=== PATIENT | male | born 2000 | race Caucasian/White ===

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

== ENCOUNTER 2021-03-17 15:00 | Observation (INO) | payer OTHER, SELFPAY ==
[~2021-03-17] VITALS: Ht 180.3 cm; Wt 47.2 kg
[2021-03-17 15:07] VITALS: BP 117/75
--- NOTE | 2021-03-17 15:10 | NUR ---
Patient ambulated to restroom with steady/even gait for UA attempt
--- NOTE | 2021-03-17 15:14 | NUR ---
Patient to bed 04 with slow, steady gait. Accompanied by family and mother.
--- NOTE | 2021-03-17 15:15 | NUR ---
20 y/o M BIB mother c/o acute onset low abdominal pain x 2 hours now. Patient states 9/10, non-radiating pain. Patient reports at home at rest playing video games. Abd soft/round/tender to touch. Denies fever, chills, nausea, vomiting, diarrhea, constipation, chest pain, low pain, injury/trauma, dysuria. Pt placed into a gown and UA sample collected. electronic semiconductor processor in place VSS; respirations even/unlabored. Bed locked in lowest position, side rails x 1. Mother at bedside. PMH: hearing impaired, speech and comphrension impaired, autism Meds: Vinolin A: codeine
--- NOTE | 2021-03-17 15:15 | NUR ---
Dr. Cheung is evaluating patient at bedside
[2021-03-17] MEDS ORDERED: NACL 0.9% 1,000 ML IV SCH (15:30)
[2021-03-17] MEDS ORDERED: KETOROLAC 30 MG/ML VIAL IVP ONE (15:30)
--- NOTE | 2021-03-17 15:47 | NUR ---
CT consent form obtained.
--- NOTE | 2021-03-17 15:52 | NUR ---
Unable to contact CT by telephone at this time
--- NOTE | 2021-03-17 15:53 | NUR ---
Dr. Cheung advised hvac engineering technician at ER bedside patient is ready for CT without lab results.
[2021-03-17 15:58] LABS: BASOPHILS # (AUTO) 0.1 K/uL (0.00-0.22); BASOPHILS % (AUTO) 0.8 % (0.0-2.0); EOSINOPHILS # (AUTO) 0.1 K/uL (0-0.4); EOSINOPHILS % (AUTO) 1.6 % (0.0-4.0); HEMATOCRIT 46.8 % (36-52); HEMOGLOBIN 15.6 g/dL (12.0-18.0); LYMPHOCYTES # (AUTO) 1.6 K/uL (2.0-11.5); MEAN CORPUSCULAR HEMOGLOBIN 29 pg (27-31); MEAN CORPUSCULAR HGB CONC 33 g/dL (33-37); MEAN CORPUSCULAR VOLUME 85.7 fL (80-94); MONOCYTES # (AUTO) 0.3 K/uL (0.8-1.0); MONOCYTES % (AUTO) 4.1 % (1.7-9.3); NEUTROPHILS # (AUTO) 5.9 K/uL (1.8-7.7); NEUTROPHILS % (AUTO) 73.5 % (42.2-75.2); PLATELET COUNT (AUTO) 239 K/uL (140-450); RED BLOOD CELL COUNT(AUTO) 5.46 MIL/uL (4.20-6.10); RED CELL DISTRIBUTION WIDTH 14.3 % (11.6-13.7); WHITE BLOOD COUNT (AUTO) 8.1 K/uL (4.8-10.8)
--- NOTE | 2021-03-17 15:58 | NUR ---
Blood sample walked to lab and handed to CPT. Ivelisse
[2021-03-17 16:41] LABS: ALBUMIN 4.3 g/dL (3.4-5.0); ANION GAP 14.2 (8-16); CARBON DIOXIDE 27.7 mmol/L (21-32); POTASSIUM 3.9 mmol/L (3.5-5.1); TOTAL BILIRUBIN 0.6 mg/dL (0.0-1.0)
[2021-03-17 16:46] LABS: APPEARANCE,URINE SL CLOUDY (CLEAR); BILIRUBIN,URINE NEGATIVE (NEGATIVE); BLOOD, URINE NEGATIVE (NEGATIVE); COLOR,URINE YELLOW (YELLOW); LEUKOCYTE ESTERASE ,URINE NEGATIVE (NEGATIVE); NITRITE, URINE NEGATIVE (NEGATIVE); PH,URINE 8.5 (5.0-9.0); UGLUCOSE NEGATIVE (NEGATIVE)
[2021-03-17 17:13] LABS: CREATININE 0.9 mg/dL (0.6-1.3)
--- NOTE | 2021-03-17 17:27 | NUR ---
COVID SWAB OBTAINED AND WALKED TO LAB
[2021-03-17] MEDS ORDERED: PIPERACILLIN/TAZOBACTAM 3.375 GM in DEXTROSE 5% 50 ML IV ONE (17:30)
[2021-03-17] MEDS ORDERED: PIPERACILLIN/TAZOBACTAM 3.375 GM VIAL IV ONE (17:48)
--- NOTE | 2021-03-17 17:55 | NUR ---
Blood cultures handed to CPT Ivelisse at ER bedside
[2021-03-17] MEDS ORDERED: HYDROcodone/APAP 5/325 MG 1 TAB TAB PO PRN ×2 (18:35→20:25)
[2021-03-17] MEDS ORDERED: ONDANSETRON 4 MG/2 ML VIAL IVP PRN ×2 (18:35→20:30)
[2021-03-17] MEDS ORDERED: ACETAMINOPHEN 325 MG TAB PO PRN ×2 (18:35→20:25)
[2021-03-17] MEDS: NACL 0.9% 1,000 ML IV SCH (18:39)
[2021-03-17] MEDS ORDERED: KETOROLAC 15 MG/ML VIAL IVP PRN (18:40)
--- NOTE | 2021-03-17 18:40 | NUR ---
Dr. Alfred is evaluating patient at bedside
--- NOTE | 2021-03-17 18:57 | NUR ---
Patient will be admitted to care of Dr. Spencer. Admited to Med/Surg. Will go to room OR/111B. Belongings list completed. Report to DARREL Talely.
[2021-03-17] MEDS ORDERED: BUPIVACAINE-MPF/EPI 0.25% 30 ML VIAL INJ ONE (19:15)
[2021-03-17] MEDS ORDERED: DEXAMETHASONE 4 MG/ML VIAL ONE (19:27)
[2021-03-17] MEDS ORDERED: KETOROLAC 30 MG/ML VIAL ONE ×2 (19:27→19:38)
[2021-03-17] MEDS ORDERED: fentaNYL citrate 0.05 MG/ML VIAL ONE (19:36)
[2021-03-17] MEDS ORDERED: ONDANSETRON 4 MG/2 ML VIAL ONE (19:38)
[2021-03-17] MEDS ORDERED: ROCURONIUM 50 MG/5 ML VIAL IV ONE (19:38)
[2021-03-17] MEDS ORDERED: PROPOFOL 200 MG/20 ML VIAL IV ONE (19:46)
[2021-03-17] MEDS ORDERED: SUCCINYLCHOLINE CHLORIDE 200 MG/10 ML VIAL IVP ONE (19:46)
[2021-03-17] MEDS ORDERED: HYDROmorphone PFS 2 MG/ML SYR ONE (19:58)
[2021-03-17] MEDS ORDERED: MORPHINE SULFATE 4 MG/ML SYR IV PRN (20:25)
[2021-03-17] MEDS ORDERED: MORPHINE SULFATE 2 MG/ML SYR IVP PRN (20:25)
[2021-03-17] MEDS ORDERED: ONDANSETRON 4 MG/2 ML VIAL IV PRN (20:25)
[2021-03-17] MEDS ORDERED: HYDROmorphone 1 MG/ML AMP IVP PRN (20:30)
--- NOTE | 2021-03-17 21:05 | NUR ---
PATIENT WAS RECEIVED IN BED ALERT BUT SLEEPY, NO RESPIRATORY DISTRESS, MOTHER WAS AT THE BEDSIDE AVAILABLE TO HELP INTERVIEW FOR ADMISSION.
[2021-03-18] VITALS: BP 119/71
--- NOTE | 2021-03-18 | NUR ---
VITAL SIGNS WITHIN NORMAL LIMIT FOR THE FIRST 4 15 MINUTES, HR INCREASED IN THE LAST 2 (30 MINUTES) VITAL SIGNS BUT BP WAS WITHIN NORMAL LIMIT, PATIENT WAS ALERT AND AROUSABLE BY NAME
--- NOTE | 2021-03-18 02:00 | NUR ---
PATIENT WAS CALMLY ASLEEP AT THIS TIME, REGULAR AND EQUAL RISE AND FALL OF CHEST.
[2021-03-18] MEDS: NACL 0.9% 1,000 ML IV SCH (03:30)
--- NOTE | 2021-03-18 03:30 | NUR ---
PATIENT C/O PAIN IN ABD 12/25, MY CHARGE NURSE GAV HIM TORADOL PER M.D. ORDERED. TOLERATED WELL.
[2021-03-18 04:00] VITALS: BP 115/48
--- NOTE | 2021-03-18 04:00 | NUR ---
VITAL SIGNS ARE WITHIN THE NORMAL LIMIT.
[2021-03-18 06:34] LABS: HEMATOCRIT 39.5 % (36-52); LYMPHOCYTES # (AUTO) 0.6 K/uL (2.0-11.5); LYMPHOCYTES % (AUTO) 3.8 % (20.5-51.1); MEAN CORPUSCULAR HEMOGLOBIN 29 pg (27-31); MEAN CORPUSCULAR HGB CONC 33 g/dL (33-37); MEAN CORPUSCULAR VOLUME 86.6 fL (80-94); MONOCYTES # (AUTO) 0.5 K/uL (0.8-1.0); MONOCYTES % (AUTO) 3.2 % (1.7-9.3); NEUTROPHILS # (AUTO) 15.1 K/uL (1.8-7.7); PLATELET COUNT (AUTO) 235 K/uL (140-450); RED BLOOD CELL COUNT(AUTO) 4.55 MIL/uL (4.20-6.10); RED CELL DISTRIBUTION WIDTH 14.2 % (11.6-13.7); WHITE BLOOD COUNT (AUTO) 16.2 K/uL (4.8-10.8)
[2021-03-18 07:02] LABS: ANION GAP 11.8 (8-16); CARBON DIOXIDE 24.3 mmol/L (21-32); CREATININE 0.7 mg/dL (0.6-1.3); POTASSIUM 4.1 mmol/L (3.5-5.1)
--- NOTE | 2021-03-18 07:26 | NUR ---
ALL REPORTS WERE GIVEN, TRANSFER OF CARE ENDORSED.
--- NOTE | 2021-03-18 07:27 | NUR ---
RECEIVED PATIENT FROM HAIRMASTERS MANAGER NURSE FOR CONTINUITY OF CARE. PT IS AOX4, ABLE TO MAKE NEEDS KNOWN. RESPIRATIONS EVEN AND UNLABORED. ON ROOM AIR. NO DISTRESS NOTED. NOTED 3 SURGICAL INCISIONS OPEN TO AIR. NO DRAINAGE NOTED. PT DENIES PAIN AT THE MOMENT. IV LINE INTACT AND PATENT INFUSING FLUIDS WELL. PLAN OF CARE DISCUSSED. SAFETY PRECAUTIONS IN PLACE. CALL LIGHT WITHIN REACH. WILL CONTINUE TO MONITOR.
[2021-03-18 08:00] VITALS: BP 104/53
[2021-03-18] MEDS ORDERED: KETOROLAC 30 MG/ML VIAL IVP PRN (08:35)
[2021-03-18] MEDS ORDERED: IBUP-1842 PO (09:00)
--- NOTE | 2021-03-18 09:07 | NUR ---
PT COMPLAINED OF 6/10 PAIN. WAS GIVEN PRN MEDS PRESCRIBED PER MD FOR MODERATE PAIN. PT TOLERATED WELL AND STABLE.
[2021-03-18 10:22] VITALS: BP 104/53
--- NOTE | 2021-03-18 11:01 | NUR ---
PATIENT HAS BEEN SCREENED AND CATEGORIZED HIGH NUTRITION RISK. PATIENT WILL BE SEEN WITHIN 1-2 DAYS OF ADMISSION. 03/19/21 REVIEWED BY GALO BE[address]
--- NOTE | 2021-03-18 12:00 | NUR ---
ENDORSED DISCHARGE INSTRUCTIONS TO PATIENT AND FAMILY. BOTH PARTIES VERBALIZED UNDERSTANDING AND PT SIGNED DISCHARGE FORMS.
--- NOTE | 2021-03-18 12:15 | NUR ---
PATIENT DISCHARGED OFF THE UNIT. IV CATH AND ID BAND REMOVED. ESCORTED PATIENT TO THE FRONT LOBBY WITH FAMILY. PT WAS STABLE.
== END 2021-03-18 12:15 | disposition home or self-care (01) ==
LOC: MED 15:00 → MTU 18:36 → INTOOBSV 18:36
PROVIDERS: ADMIT Internal Medicine; ATTEND Internal Medicine
DX: K35.80 Unspecified acute appendicitis (principal); Z20.822 Contact with and (suspected) exposure to COVID-19; F84.0 Autistic disorder; F81.9 Developmental disorder of scholastic skills, unspecified
CPT/HCPCS: 36415; 44970; 74177; 80048; 80053; 81003; 82374; 83690; 85025; 87040; 87081; 87426; 96365; 96375; 96376; 99285; G0378; J0330; J1100; J1170; J1644; J1885; J2405; J2543; J2704; J3010; J3490; J7030; J7120; Q9967; 88304

== ENCOUNTER 2022-04-06 05:55 | Emergency (ER) | payer OTHER ==
[~2022-04-06] VITALS: Ht 175.3 cm; Wt 47.6 kg
[~2022-04-06 05:55] MED LIST: IBUP-1842 PO
[2022-04-06 06:02] VITALS: BP 126/75
--- NOTE | 2022-04-06 06:09 | NUR ---
BIB MOM C/O LOWER ABDOMINAL PAIN X 2 DAYS, +DIARRHEA. DENIES N/V. +SICK CONTACTS IN HOUSE WITH SIMILAR SYMPTOMS. PER MOM SHE IS MEDICATING WITH MOTRIN LAST DOSE AT 2200. PMH SPEECH AND HEARING IMPAIRMENT
--- NOTE | 2022-04-06 06:13 | NUR ---
DR. BANDA IN TRIAGE FOR MSE
[2022-04-06] MEDS ORDERED: NACL 0.9% 1,000 ML IV ONE (06:35)
--- NOTE | 2022-04-06 06:37 | NUR ---
REPORT GIVEN TO UCHE ROJO
--- NOTE | 2022-04-06 06:44 | NUR ---
PT AMB W/ ASSIST TO BED 02
[2022-04-06 07:09] LABS: APPEARANCE,URINE CLEAR (CLEAR); BILIRUBIN,URINE NEGATIVE (NEGATIVE); BLOOD, URINE NEGATIVE (NEGATIVE); COLOR,URINE YELLOW (YELLOW); LEUKOCYTE ESTERASE ,URINE NEGATIVE (NEGATIVE); NITRITE, URINE NEGATIVE (NEGATIVE); UGLUCOSE NEGATIVE (NEGATIVE)
--- NOTE | 2022-04-06 07:17 | NUR ---
REPORT TO TRUE ROJO WITH FULL RETURNED VERBAL UNDERSTANDING.
--- NOTE | 2022-04-06 07:36 | NUR ---
BLOOD DRAWN BY PUBLIC ADMINISTRATION TEACHER. PT AMBULATED TO RESTROOM
[2022-04-06] MEDS ORDERED: IBUPROFEN 600 MG TAB PO ONE (07:40)
[2022-04-06 07:53] LABS: ANION GAP 15.2 (8-16); CARBON DIOXIDE 22.4 mmol/L (21-32); POTASSIUM 3.6 mmol/L (3.5-5.1)
[2022-04-06 08:02] VITALS: BP 106/59
[2022-04-06] MEDS ORDERED: ONDA-188 PO (08:28)
[2022-04-06] MEDS ORDERED: LOPE1TAB14 PO (08:28)
--- NOTE | 2022-04-06 08:34 | NUR ---
Patient discharged with v/s stable. Written and verbal after care instructions given and explained. Patient alert, oriented and verbalized understanding of instructions. Ambulatory with steady gait. All questions addressed prior to discharge. ID band removed. Patient advised to follow up with PMD. Patient educated on indication of medication including possible reaction and side effects. Opportunity to ask questions provided and answered.
== END 2022-04-06 08:34 | disposition home or self-care (01) ==
LOC: MED 05:55
DX: R19.7 Diarrhea, unspecified (principal); R10.84 Generalized abdominal pain; A05.9 Bacterial foodborne intoxication, unspecified; Z88.5 Allergy status to narcotic agent; Z79.899 Other long term (current) drug therapy
CPT/HCPCS: 36415; 74018; 80048; 81003; 99284; J7030; Q0092

== ENCOUNTER 2022-06-09 09:39 | Emergency (ER) | payer OTHER ==
[~2022-06-09] VITALS: Ht 175.3 cm; Wt 47.6 kg
[~2022-06-09 09:39] MED LIST changes: +LOPE1TAB14 PO; +ONDA-188 PO
[2022-06-09 09:40] VITALS: BP 131/78
--- NOTE | 2022-06-09 09:40 | NUR ---
21M BIBA FROM HOME ACCOMPANIED BY MOM WITH C/O GENERALIZED WEAKNESS AND NUMBNESS TO THE TONGUE SINCE THIS MORNING. MOM REPORTS PT HAS COUGH AND CONGESTION X3DAYS, FATHER SICK AT HOME WITH SAME S/S. MOM REPORTS PT TOOK DAD'S PROMETHAZINE, FIRST TIME USING MED, AND FELT WEAK, JITTERY AND TONGUE NUMBNESS SHORTLY AFTER. MOM DENIES FEVERS, CHILLS, N/V/D OR PAIN UPON ASSESSMENT. PT PLACED ON BEDSIDE MONITOR, BED AT LOWEST POSITION, SIDE RAILS X1.
--- NOTE | 2022-06-09 09:40 | NUR ---
KINGA PONCE VIA GURNEY TO BED 06.
[2022-06-09] MEDS ORDERED: PRED20TA5 PO (11:21)
--- NOTE | 2022-06-09 11:25 | NUR ---
Patient ambulated to restroom with mom.
[2022-06-09 11:37] VITALS: BP 111/69
--- NOTE | 2022-06-09 11:37 | NUR ---
Patient discharged with v/s stable. Written and verbal after care instructions given. Patient alert, oriented and verbalized understanding of instructions. Ambulatory with steady gait. All questions addressed prior to discharge. ID band removed. Patient advised to follow up with PMD. Rx of Prednisone given. Opportunity to ask questions provided and answered.
--- NOTE | 2022-06-09 11:40 | NUR ---
The patient's care was reviewed and supervised by [facility], RN.
== END 2022-06-09 11:37 | disposition home or self-care (01) ==
LOC: MED 09:39
DX: R05.9 Cough, unspecified (principal); T43.3X5A Adverse effect of phenothiazine antipsychotics and neuroleptics, initial encounter; F41.9 Anxiety disorder, unspecified; Z90.49 Acquired absence of other specified parts of digestive tract; Y92.89 Other specified places as the place of occurrence of the external cause
CPT/HCPCS: 99283

== ENCOUNTER 2022-07-01 09:36 | Emergency (ER) | payer OTHER ==
[~2022-07-01] VITALS: Ht 175.3 cm; Wt 45.4 kg
[~2022-07-01 09:36] MED LIST changes: +PRED20TA5 PO
[2022-07-01 10:04] VITALS: BP 100/56
--- NOTE | 2022-07-01 15:45 | NUR ---
Patient discharged with v/s stable. Written and verbal after care instructions given and explained. Patient verbalized understanding. Ambulatory with steady gait w a cane . All questions addressed prior to discharge. Advised to follow up with PMD. consuelo'[facility] home salima sanchez
[2022-07-01] MEDS ORDERED: MELA5TAB6 PO (15:53)
[2022-07-01 15:59] VITALS: BP 118/78
== END 2022-07-01 15:45 | disposition home or self-care (01) ==
LOC: MED 09:36
DX: R13.10 Dysphagia, unspecified (principal)
CPT/HCPCS: 70360; 71045; 87081; 99284